=== PATIENT | male | born 1945 | race Caucasian/White ===

== ENCOUNTER 2017-12-29 09:32 | Day surgery (SDC) | payer OTHER, SELFPAY ==
--- NOTE | 2017-12-29 | PATH_ITS ---
[facility] Accession Number: [id number] . 01 Material submitted: . ASCENDING COLON POLYPS, BIOPSY . 02 Diagnosis: Ascending Colon, Polyps, Biopsies: Sessile serrated adenomas. MRV/12/30/2017 . 02 Electronically signed: . Jennifer Lomeli MD, Pathologist NPI- [id number] . 01 Gross description: . Received one formalin-filled container labeled with the patient's name and labeled ascending colon polyp, are two 0.4-0.6 cm portions of tissue, entirely submitted in one cassette. ([id number]) /FRR . 02 Pathologist provided ICD-10: D12.2 . 02 CPT . 583492 Performed at: 01 [facility] [address] [id number] MD Mo Arcos MD Phone: [phone] Performed at: 02 [facility] [address] [place], [place] [id number] MD Dakota Pizarro MD Phone: [phone]
[2017-12-29 09:54] VITALS: BMI 23.3
[2017-12-29 10:08] VITALS: BP 139/74; PULSE 68; RESP 12; TEMP 36.9; O2SAT 96
[2017-12-29] MEDS: SODIUM CHLORIDE 0.9% 1,000 ML 21 ML IV (10:10)
[2017-12-29] MEDS: fentaNYL 250 MCG/5 ML INJ IV (11:26)
[2017-12-29] MEDS: MIDAZOLAM 5 MG/5 ML VIAL IV (11:27)
--- NOTE | 2017-12-29 11:33 | PM.OP.ENDO ---
Operative Date/Time/Diagnoses Date of procedure: 12/29/17 Time of procedure: 11:33 Pre-op diagnosis: See indications Procedure & Clinicians Study performed: Colonoscopy Indications: Personal history of colon polyps and positive fit test Surgeon: Riki Cooper Procedure Notes Procedure in detail: After informed consent was obtained the patient was placed in left lateral decubitus position. The video colonoscope was introduced in the rectum and slowly advanced to the cecum. On slow withdrawal the mucosa was carefully examined. Scope was removed and the patient tolerated procedure well Blood loss none Complications none Sedation Versed 7 mg fentanyl 100 mcg IV titration Total sedation time 20 min Findings 1. 1 cm sessile polyp with indistinct margins at the cecal rim opposite the IC valve. This was injected with 2 cc normal saline to raise and then hot snared. Specimen was retrieved. 2. 2.5 cm semi sessile polyp seen in mid ascending colon. This was injected with saline to raise and then piecemeal snared. Pieces were removed. Area was then injected with 1 cc of spot for tattooing and location in the future. 3. Severe diverticulosis particularly in the sigmoid colon. 4. Otherwise negative colonoscopy to cecum We will be in touch with the patient regarding his pathology but most likely will need follow-up colonoscopy in 6 months to reassess these areas.
[2017-12-29 11:34] VITALS: BP 112/67; PULSE 71; RESP 10; TEMP 36.4; O2SAT 96
[2017-12-29 11:35] VITALS: BP 106/66; BP 131/87; PULSE 87; PULSE 89; RESP 14; RESP 22; O2SAT 97; O2SAT 99
[2017-12-29 11:45] VITALS: BP 120/70; PULSE 72; RESP 14; O2SAT 96
[2017-12-29 11:55] VITALS: BP 114/63; PULSE 74; RESP 13; O2SAT 98
[2017-12-29 12:15] VITALS: BP 117/75; PULSE 88; RESP 12; TEMP 36.3; O2SAT 99
--- NOTE | 2018-08-14 11:48 | PM.HP.1 ---
History of Present Illness Date Patient Seen: 12/29/17 Time Patient Seen: 11:48 Chief complaint: colonoscopy [id number] Narrative: Positive FIT with history of colon polyps Patient History Medical History Blood cholesterol increased compared with prior measurement (Acute) Hemorrhoids (Acute) Surgical History History of splenectomy (Acute) Social History household members: spouse Smoking Status: Former smoker Family & Social History Social History: household members spouse Meds Home Medications Medication Instructions Recorded Confirmed Type ascorbic acid (vitamin C) [Vitamin 1,000 mg PO DAILY 12/29/17 12/29/17 History C] aspirin [Aspir-81] 81 mg PO DAILY 12/29/17 12/29/17 History atorvastatin 20 mg PO BEDTIME 12/29/17 12/29/17 History bupropion HCl 150 mg PO QAM 12/29/17 12/29/17 History dorzolamide-timolol [Cosopt] 1 drp EYE-LEFT BID 12/29/17 12/29/17 History ibuprofen 200 mg PO DAILY 12/29/17 12/29/17 History multivitamin 1 tab PO DAILY 12/29/17 12/29/17 History tafluprost (PF) [Zioptan (PF)] 1 drp EYE-LEFT DAILY 12/29/17 12/29/17 History Allergies Allergy/AdvReac Type Severity Reaction Status Date / Time morphine AdvReac Severe Itching Verified 12/29/17 09:50 Exam Vital Signs (past 8 hours): Oxygen Delivery Method Room Air Narrative Exam Narrative: oropharynx free of lesions chest clear to auscultation percussion Cardiac exam reveals no S3 or murmur Assessment & Plan Assessment & Plan narrative: positive fit test and history of colon polyps need for follow-up colonoscopy. risks, benefits, alternatives have been explained. Further recommendations will follow the results of th
== END 2017-12-29 12:31 | disposition home or self-care (01) ==
PROVIDERS: PCP Internal Medicine; Visit Provider Internal Medicine Gastroenterology
PROC: 0DJD8ZZ Inspection of Lower Intestinal Tract, Via Natural or Artificial Opening Endoscopic (ICD-10-PCS; CPT 45378; principal; 2017-12-29 10:30)
DX: R19.5 Other fecal abnormalities (principal); Z86.010 Personal history of colon polyps; K57.30 Diverticulosis of large intestine without perforation or abscess without bleeding; D12.2 Benign neoplasm of ascending colon
CPT/HCPCS: 45385; 45381; J2250; J3010

== ENCOUNTER 2017-12-30 23:06 | Emergency (ER) | payer OTHER, SELFPAY ==
[2017-12-30 23:18] VITALS: BP 130/70; PULSE 96; RESP 18; TEMP 36.3; O2SAT 98; BMI 23.3
--- NOTE | 2017-12-30 23:44 | DI.CT.S_ITS ---
PROCEDURE: CT ABDOMEN PELVIS W CON INDICATIONS: Colonoscopy yesterday now with rectal bleeding TECHNIQUE: After the administration of intravenous contrast, 5 mm thick sections acquired from the diaphragm to the symphysis. 5 mm coronal and sagittal reformats were acquired. For radiation dose reduction, the following was used: automated exposure control, adjustment of mA and/or kV according to patient size. COMPARISON: None. FINDINGS: Image quality: Excellent. ABDOMEN: Lung bases: No acute consolidation. Presumed ill-defined scarring seen in the left lower lobe with possible early bleb formation however technically nonspecific. There is also a 3 mm nodule in the right middle lobe which is indeterminate in the absence of prior studies Solid organs: 3 mm right hepatic hypodensity is too small to characterize. Gallbladder contracted. Biliary system is non dilated. Pancreas enhances normally. Spleen is absent No adrenal nodules. Bilateral renal cortical scarring, mild. There are presumed bilateral renal cysts although all of these are technically too small to characterize and subcentimeter. Prominent distention of the stomach and duodenum. No definite bowel obstruction. Colonic diverticulosis. The appendix appears normal. The rectum is filled with stool and fluid otherwise unremarkable. No free air or free fluid identified. Nodes and vessels: No retroperitoneal or mesenteric adenopathy by size criteria. Aorta and inferior vena cava are normal in size. Miscellaneous: No ventral hernias. PELVIS: Genitourinary: Bladder wall thickness is normal. Prostate is mildly enlarged Miscellaneous: No inguinal hernias or adenopathy. Bones: No suspicious bony lesions. No vertebral body compression fractures. Presumed lipoma seen within the right adductor muscle compartment. Diffuse discogenic changes throughout the entire visualized spine. There is facet arthropathy. IMPRESSION: No acute abnormality. Normal appearance of the appendix. No free air or free fluid. No evidence of bowel obstruction. Prominent gastric and small bowel contents as well as moderate fluid and gas seen within the colon. Please correlate clinically. If there is suspicion of developing bowel obstruction or ileus, continued surveillance with abdominal radiographs could be performed. Incidental diverticulosis. 3 mm right middle lobe pulmonary nodule which is technically indeterminate in the absence of prior studies. A followup noncontrast chest CT in one year could be performed as clinically warranted. Additional chronic and incidental findings as above. Dictated by: Emmanuel Nicole M.D. on 12/31/2017 at 7:17 Approved by: Emmanuel Nicole M.D. on 12/31/2017 at 7:25
--- NOTE | 2017-12-30 23:52 | PC.NURSE ---
Pt reports that he had a colonoscopy yesterday, tonight having bloody stools. on assessment, rectum has many hemorrhoids. Pt reports he had had them for years. Other than the blood in his stool he is having no other sx. Denies CP SOB dizziness or being lightheaded. Vitals are WNL for him and he denies pain.
--- NOTE | 2017-12-30 23:54 | ED_ITS ---
HPI - GI Bleed General Chief complaint: GI Bleed Stated complaint: GUSH OF RECTAL BLOOD,COLONSCOPY YESTERDAY Time Seen by Provider: 12/30/17 23:10 Source: patient Mode of arrival: ambulatory Limitations: no limitations History of Present Illness HPI Narrative: Patient is a 72-year-old male here for evaluation of 2 episodes of rectal bleeding of bright red blood. Patient states that he had a colonoscopy performed yesterday. Stated that he had 2 biopsies performed. I was able to review the patient's operative note. Patient states that he did have a normal bowel movement earlier in the day but then this evening had a sudden sensation that he needed to go to the bathroom and when he did he had painless bright red blood. This happened 2 times for him. Denies any fevers. Denies any abdominal pain. 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 Patient does have a history of hemorrhoids. Related Data Home Medications Medication Instructions Recorded Confirmed ascorbic acid (vitamin C) [Vitamin 1,000 mg PO DAILY 12/29/17 12/29/17 C] aspirin [Aspir-81] 81 mg PO DAILY 12/29/17 12/29/17 atorvastatin 20 mg PO BEDTIME 12/29/17 12/29/17 bupropion HCl 150 mg PO QAM 12/29/17 12/29/17 dorzolamide-timolol [Cosopt] 1 drp EYE-LEFT BID 12/29/17 12/29/17 ibuprofen 200 mg PO DAILY 12/29/17 12/29/17 multivitamin 1 tab PO DAILY 12/29/17 12/29/17 tafluprost (PF) [Zioptan (PF)] 1 drp EYE-LEFT DAILY 12/29/17 12/29/17 Allergies Allergy/AdvReac Type Severity Reaction Status Date / Time morphine AdvReac Severe Itching Verified 12/29/17 09:50 Review of Systems Constitutional Denies fatigue and Denies fever(s) Cardiovascular Denies chest pain and Denies dyspnea Respiratory Denies dyspnea Gastrointestinal Gastrointestinal: Denies abdominal pain, Reports hematochezia, Denies coffee ground emesis, Reports diarrhea, Reports loose stools, Denies nausea and Denies vomiting Genitourinary Denies hematuria and Denies dysuria Musculoskeletal Denies myalgias and Denies arthralgias Integumentary/Breasts Denies lesions and Denies rash Neurologic Denies confusion Psychiatric Denies confusion Endocrine Denies fatigue Hematologic/Lymphatic Denies easy bleeding and Denies easy bruising [facility] Medical History Hemorrhoids (Acute) Surgical History History of splenectomy (Acute) Social History household members: spouse Smoking Status: Former smoker Exam Initial Vital Signs Initial Vital Signs: Vital Signs Temperature 97.4 F L 12/30/17 23:18 Pulse Rate 96 H 12/30/17 23:18 Respiratory Rate 18 12/30/17 23:18 Blood Pressure 130/70 H 12/30/17 23:18 Pulse Oximetry 98 12/30/17 23:18 Const General: cooperative, healthy appearing, comfortable, well developed, well groomed and No acute distress Orientation: alert, awake and oriented x3 HENMT Head: normal to inspection and normocephalic Resp Effort & Inspection: normal respiratory effort GI Inspection: normal to inspection and non-distended Palpation: soft, No firm and No tender Rectal Exam: normal sphincter tone, heme positive stool, hemorrhoids and No tenderness Skin Lesions: no lesions Rashes: no rashes Neuro General: alert, awake and oriented x3 Extrem General: normal to inspection and capillary refill normal Psych Appearance: grossly normal and well kempt Course Orders Ordered: ED Orders 12/30/17 23:44 CT abdomen pelvis w con Stat 12/30/17 23:48 Basic Metabolic Panel Stat Complete Blood Count AUTO DIFF Stat Discontinued Medications Sodium Chloride (Normal Saline 0.9%) 1,000 mls @ 1,000 mls/hr IV BOLUS ONE Stop: 12/31/17 00:43 Last Infusion: 12/31/17 00:26 Dose: 1,000 mls/hr Infusion: 12/31/17 00:14 Dose: 0 mls/hr Admin: 12/31/17 00:01 Dose: 1,000 mls/hr Vital Signs - 8 hr 12/30/17 23:18 Temperature 97.4 F L Pulse Rate 96 H Respiratory Rate 18 Blood Pressure 130/70 H Pulse Oximetry 98 MDM - GI Bleed Medical Records Attestation: I reviewed the patient's medical records. Lab Data Attestation: I reviewed the patient's lab results. Result diagrams: 12/30/17 23:48 12/30/17 23:48 Lab Results 12/30/17 12/30/17 Range/Units 23:48 23:48 WBC 10.1 (4.5-11.0) X10^3/uL RBC 4.19 L (4.5-5.9) X10^6/uL Hgb 14.3 (13.5-17.5) g/dL Hct 41.2 (41-53) % MCV 98.4 (80-100) fL MCH 34.1 H (26-34) PG MCHC 34.7 (30-36) % RDW 13.2 (11.6-14.8) % Plt Count 275 (150-400) X10^3/uL Neut % (Auto) 54.8 (50-75) % Lymph % (Auto) 28.4 (25-40) % [place] % (Auto) 8.1 (3-14) % Eos % (Auto) 7.7 H (2-4) % Baso % (Auto) 1.0 (0-2) % Neut # (Auto) 5500 (0536-7761) /uL Sodium 141 (137-145) mmol/L Potassium 4.4 (3.4-5.1) mmol/L Chloride 108 H (98-107) mmol/L Carbon Dioxide 25 (22-32) mmol/L BUN 16 (9-20) mg/dL Creatinine 0.80 (0.66-1.25) mg/dL Estimated GFR > 60.0 (>60) mL/min BUN/Creatinine Ratio 20.0 (6-22) Glucose 150 H (80-110) mg/dL Calcium 9.0 (8.4-10.2) mg/dL Imaging Data CT scan - abdomen: Radiologist's impression: No bowel perforation, free air or free fluid. No evidence of acute intraluminal bleeding. History of splenectomy. Prominent stomach, small bowel and colon contents. Moderate diverticulosis of the left colon. No evidence of acute diverticulitis or appendicitis. Mild enlarged prostate. Hepatic and renal cyst. MDM Narrative Medical decision making narrative: Patient has no abdominal pain, no vomiting, no fevers, does have obvious blood on rectal exam. Does have hemorrhoids. Did have 2 polyps removed during his last colonoscopy approximately 24 hr ago. Informed patient that I suspect that his rectal bleeding is either from the polyp removal sites or the hemorrhoids or both. Informed him that he has a low probability given the rest of his physical exam and lack of fevers that there is a bowel perforation. Despite this patient wanted a CT scan because of his prior history of splenic laceration after the last colonoscopy. A CT scan was ordered shows no acute pathology. Patient's labs are unremarkable. Had no further episodes of rectal bleeding here in the ER. Will have the patient call his operative surgeon tomorrow to discuss the findings. Patient was given return precautions. He expressed understanding and agreement with plan. Discharge Plan Departure Patient Disposition: Home, Self-Care Clinical Impression: Bright red rectal bleeding, Hemorrhoids Instructions: DI for Hemorrhoids, DI for Rectal Bleeding Activity Restrictions/Additional Instructions: I recommend that you contact your operative surgeon later today to discuss follow-up. I would not be surprised if you have further rectal bleeding. If this continues you do need to talk with your operative surgeon. Return to the emergency department for any abdominal pain, fevers, vomiting, or any other new or concerning symptoms. Prescriptions: No Action multivitamin Tablet 1 tab PO DAILY RF: 0 ascorbic acid (vitamin C) [Vitamin C] 1,000 mg Tablet 1,000 mg PO DAILY RF: 0 atorvastatin 20 mg Tablet 20 mg PO BEDTIME RF: 0 ibuprofen 200 mg Capsule 200 mg PO DAILY RF: 0 aspirin [Aspir-81] 81 mg Tablet,Delayed Release (Dr/Ec) 81 mg PO DAILY RF: 0 dorzolamide-timolol [Cosopt] 22.3-6.8 mg/mL Drops 1 drp EYE-LEFT BID RF: 0 bupropion HCl 150 mg Tablet Extended Release 24 Hr 150 mg PO QAM RF: 0 tafluprost (PF) [Zioptan (PF)] 0.0015 % Dropperette 1 drp EYE-LEFT DAILY RF: 0
[2017-12-30 23:58] LABS: Add Manual Diff / Slide Review NO; Eosinophils Percent Auto 7.7 % (2-4); Hematocrit 41.2 % (41-53); Hemoglobin 14.3 g/dL (13.5-17.5); Lymphocytes Percent Auto 28.4 % (25-40); Mean Corpuscular HGB Conc 34.7 % (30-36); Mean Corpuscular Hemoglobin 34.1 PG (26-34); Mean Corpuscular Volume 98.4 fL (80-100); Monocytes Percent Auto 8.1 % (3-14); Neutrophils Absolute Auto 5500 /uL (3000-5900); Neutrophils Percent Auto 54.8 % (50-75); Platelet Count 275 X10^3/uL (150-400); Red Blood Cell Count 4.19 X10^6/uL (4.5-5.9); Red Cell Distribution Width 13.2 % (11.6-14.8); White Blood Cell Count 10.1 X10^3/uL (4.5-11.0)
[2017-12-31] MEDS: SODIUM CHLORIDE 0.9% 1,000 ML 1000 ML IV (00:01)
[2017-12-31 00:08] LABS: Blood Urea Nitrogen 16 mg/dL (9-20); Carbon Dioxide 25 mmol/L (22-32); Chloride 108 mmol/L (98-107); Estimated Glomerular Filt Rate > 60.0 mL/min (>60); Glucose 150 mg/dL (80-110); HEMOLYSIS 19 (0-50); Potassium 4.4 mmol/L (3.4-5.1); Sodium 141 mmol/L (137-145)
[2017-12-31 01:33] VITALS: BP 119/73; PULSE 82; RESP 16; O2SAT 96
== END 2017-12-31 01:34 | disposition home or self-care (01) ==
PROVIDERS: Emergency Provider Emergency Medicine; PCP Internal Medicine
DX: K64.9 Unspecified hemorrhoids (principal)
CPT/HCPCS: 36591; 74177; 80048; 85025; 96360; 99283; 99285; Q9967

== ENCOUNTER 2018-09-07 08:55 | Day surgery (SDC) | payer OTHER, SELFPAY ==
--- NOTE | 2018-09-07 | PATH_ITS ---
[facility] Accession Number: [id number] . 01 Material submitted: . PART A: ileum - TERMINAL ILEUM LESION PART B: colon - ASCENDING COLON POLYP PART C: colon - ASCENDING COLON POLYP PART D: colon - TRANSVERSE COLON POLYP PART E: sigmoid colon - SIGMOID POLYP . 01 Clinical history: . A: RULE OUT ADENOMA B: PREVIOUS POLYPECTOMY SITE C: POLYP X4 D: POLYP X2 . 02 Diagnosis: A. Terminal Ileum, Biopsy: Ileal mucosa with benign lymphoid hyperplasia. Negative for active inflammation, granulomata, dysplasia or malignancy. . B. Ascending Colon, Previous Polypectomy Site, Biopsy: Spirochetosis. No evidence of residual neoplasm. . C. Ascending Colon, Polyps: Fragments of sessile serrated adenoma and fragment of tubular adenoma (four polyps removed). Spirochetosis. . D. Transverse Colon, Polyps: Fragments of hyperplastic polyp (two polyps removed). Spirochetosis. . E. Sigmoid Colon, Polyp: Traditional serrated adenoma; please see comment. Spirochetosis. Negative for high-grade dysplasia or malignancy. MRV/09/09/2018 . 02 Comment: Parts B-E) Colonic spirochetosis is an unusual condition in which numerous spirochete bacteria carpet the surface epithelium. It has been associated with abdominal pain, diarrhea, rectal bleeding, and immunosuppression in some cases. That said, it is often reported as an incidental finding with no clear clinical correlates. . Part E) A traditional serrated adenoma is considered an advanced adenoma. As such, assurance of a complete polypectomy and a shortened surveillance interval are recommended. As part of routine clinical quality analyst, Dr. Lomeli has reviewed this part and agrees with the diagnosis of traditional serrated adenoma. . 02 Electronically signed: . Ruslan Giles MD, PhD, Pathologist NPI- [id number] . 01 Gross description: . Part A: TERMINAL ILEUM LESION: Received in formalin are 2 fragment(s) of sagastume, soft tissue measuring 0.2 x 0.2 x 0.2 cm to 0.3 x 0.2 x 0.2 cm which is entirely submitted and submitted entirely in 1 cassette(s) Part B: ASCENDING COLON POLYP: Received in formalin are 2 fragment(s) of sagastume, soft tissue measuring 0.2 x 0.2 x 0.1 cm to 0.3 x 0.2 x 0.2 cm which is entirely submitted and submitted entirely in 1 cassette(s) Part C: ASCENDING COLON POLYP: Received in formalin are multiple fragment(s) of sagastume, soft tissue measuring 0.1 x 0.1 x 0.1 cm to 0.3 x 0.3 x 0.3 cm which is entirely submitted and submitted entirely in 1 cassette(s) Part D: TRANSVERSE COLON POLYP: Received in formalin are 2 fragment(s) of sagastume, soft tissue measuring 0.1 x 0.1 x 0.1 cm to 0.3 x 0.2 x 0.2 cm which is entirely submitted and submitted entirely in 1 cassette(s) Part E: SIGMOID POLYP: Received in formalin are 2 fragment(s) of sagastume, soft tissue measuring 0.4 x 0.4 x 0.3 cm to 1.3 x 0.2 x 0.2 cm which is entirely submitted and submitted entirely in 1 cassette(s) /DMC /[facility] . 02 Microscopic: . B. A charline stain is performed to evaluate for spirochetosis, and highlights innumerable spirochete organisms carpeting the luminal surface. A control stain shows appropriate reactivity. . 02 Pathologist provided ICD-10: D12.2, D12.3, D12.5 . 02 CPT . 499633, 348625, 553131, 098264, 435547, 452417 Performed at: 01 [facility] [address] [place] [address], [place], [place] [id number] MD Mo Arcos MD Phone: [phone] Performed at: 02 [facility] [address] [place], [place] [id number] MD Jennifer Lomeli MD Phone: [phone]
[2018-09-07 09:13] VITALS: BP 134/66; PULSE 75; RESP 16; TEMP 36.1; O2SAT 97; BMI 23.1
--- NOTE | 2018-09-07 09:23 | PM.HP.1 ---
History of Present Illness Date Patient Seen: 09/07/18 Chief complaint: [id number] COLONOSCOPY Narrative: 73-year-old male with a history of colon polyps on colonoscopy 12/29/2017 who is here for surveillance after piecemeal polypectomy. Patient History Family & Social History Social History: household members spouse Tobacco & Substance use: Smoking Status Former smoker alcohol intake frequency a few times a month Substance Use Type does not use Meds Home Medications Medication Instructions Recorded Confirmed Type ascorbic acid (vitamin C) [Vitamin 1,000 mg PO DAILY 12/29/17 12/29/17 History C] aspirin [Aspir-81] 81 mg PO DAILY 12/29/17 12/29/17 History atorvastatin 20 mg PO BEDTIME 12/29/17 12/29/17 History bupropion HCl 150 mg PO QAM 12/29/17 12/29/17 History dorzolamide-timolol [Cosopt] 1 drp EYE-LEFT BID 12/29/17 12/29/17 History ibuprofen 200 mg PO DAILY 12/29/17 12/29/17 History multivitamin 1 tab PO DAILY 12/29/17 12/29/17 History tafluprost (PF) [Zioptan (PF)] 1 drp EYE-LEFT DAILY 12/29/17 12/29/17 History Allergies Allergy/AdvReac Type Severity Reaction Status Date / Time morphine AdvReac Severe Itching Verified 09/07/18 09:37 Exam Narrative Exam Narrative: General: Patient is well developed, not in apparent distress Cardiovascular: Regular rate and rhythm, no murmurs, rubs, or gallops; no evidence of edema; no palpable abdominal aortic aneurysm Gastrointestinal: Normoactive bowel sounds, soft, nontender, nondistended, no rebound tenderness, no hepatosplenomegaly, no evidence of hernia Assessment & Plan Assessment & Plan narrative: 73-year-old male with a history of piecemeal polypectomy on colonoscopy 12/29/2017 who is here for surveillance. Regarding the procedure(s), the risks and potential complications, benefits, and alternatives (including not doing the procedure) were discussed with the patient. The risks include but are not limited to bleeding, splenic injury, infection, perforation which may require surgical intervention, missed lesions, and adverse reactions to sedative medicines. After a question and answer period, the patient agreed to proceed with the procedure(s) and gives informed consent.
[2018-09-07] MEDS: SODIUM CHLORIDE 0.9% 1,000 ML 70 ML IV (09:30)
--- NOTE | 2018-09-07 10:24 | P.OP.ENDO_ITS ---
Operative Date/Time/Diagnoses Date of procedure: 09/07/18 Procedure Notes Procedure in detail: Surgeon: Rob Saunders MD Procedure: Colonoscopy with polypectomy Preoperative diagnosis: Colon polyp surveillance, piecemeal polypectomy performed 12/29/2017 Postoperative diagnosis: 8 colon polyps removed, ascending colon tattoo with no residual polyp pandiverticulosis, grade 2 internal hemorrhoids, external hemorrhoids Medications: Conscious sedation using 4 mg IV of Midazolam and 100 mcg IV of Fentanyl Preanesthesia Assessment An H and P was performed/updated and the Px?s ASA class is 1. The procedure was discussed in detail with the patient. The potential risks and complications including infection, bleeding, missed lesions, perforation, need for surgery in case of perforation, prolonged hospital stay, and were explained. A brief question and answer period was allotted and once all questions were answered, informed consent was obtained. The patient was brought back to the procedure room and placed on standard monitoring. The patient?s vital signs were monitored continuously throughout the entire procedure. Prior to starting, a timeout was performed to confirm the patient?s identity, allergies, medications, and procedure. Procedure in detail The patient was placed in left lateral decubitus position and once adequate sedation was obtained a CARL was performed. The digital rectal examination did not reveal any palpable lesions. The tip of the colonoscope was placed in the anal canal and advanced without difficulty all the way to the cecum which was identified by the appendiceal orifice and the ileocecal valve. The terminal ileum was intubated to a distance of 5 cm from the ileocecal valve. The mucosa appeared slightly nodular and hence random biopsies were taken of this area. There was minimal bleeding. The colonoscope was then brought back to the cecum and careful examination of all pearson of the colon was performed with irrigation of any residual stool. In the ascending colon, there was a prior polypectomy site visualized with note of residual polyp. Completion of polypectomy was performed by means of a hot snare and cold Jumbo forceps. Resection and retrieval was complete with minimal bleeding. In the ascending colon, a prior tattoo site was found with no note of any residual polyp. In the ascending colon, 4 more sessile polyps were removed by means of cold Jumbo forceps. These measured 3-4 mm. Resection retrieval were complete In the transverse colon, 2 polyps were seen measuring 3 mm and 6 mm. These polyps were removed by means of cold Jumbo forceps and cold snare respectively. Resection and retrieval were complete with minimal bleeding In the sigmoid colon there was a 5 mm pedunculated polyp which was removed by means of hot snare. Resection and retrieval were complete with no bleeding. There was note of multiple large diverticula throughout the entire colon concentrated mostly in the ascending colon and left colon. Retroflexion was performed in the rectum which revealed grade 1 internal hemorrh oids The patient tolerated the procedure well and will be brought back to the recovery area to be discharged once criteria are met. The prep was judged to be good/excellent and adequate to identify polyps less than 5 mm. The withdrawal time was at 23 minutes. The total physician intraservice time was 30 minutes. Complications There were no complications and estimated blood loss was minimal. Recommendations: Resume previous diet Continue outPx medications Follow up pathology results Repeat colonoscopy in 3 years An emergency contact number was given to the patient for any complications r elated to the procedure
[2018-09-07] MEDS: MIDAZOLAM 5 MG/5 ML VIAL IV (10:27)
[2018-09-07] MEDS: fentaNYL 250 MCG/5 ML INJ IV (10:28)
[2018-09-07 10:57] VITALS: BP 126/79; PULSE 74; RESP 14; TEMP 36.8; O2SAT 99
[2018-09-07 11:02] VITALS: BP 129/66; PULSE 71; RESP 12; O2SAT 99
[2018-09-07 11:07] VITALS: BP 115/70; PULSE 72; RESP 11; O2SAT 99
--- NOTE | 2018-09-07 11:07 | PM.DS.1 ---
History of Present Illness Chief complaint: [id number] COLONOSCOPY Narrative: 73-year-old male with a history of colon polyps on colonoscopy 12/29/2017 who is here for surveillance after piecemeal polypectomy. Discharge Providers Discharge Date: 09/07/18 Discharge provider: Rob Saunders MD Exam Vital Signs (past 8 hours): - 09/07/18 09:13 09/07/18 10:57 09/07/18 11:02 Temperature 97 F L 98.2 F Pulse Rate 75 74 71 Respiratory Rate 16 14 12 Blood Pressure 134/66 126/79 129/66 Pulse Oximetry 97 99 99 Oxygen Delivery Method Room Air Narrative Exam Narrative: General: Patient is well developed, not in apparent distress Cardiovascular: Regular rate and rhythm, no murmurs, rubs, or gallops; no evidence of edema; no palpable abdominal aortic aneurysm Gastrointestinal: Normoactive bowel sounds, soft, nontender, nondistended, no rebound tenderness, no hepatomegaly, no evidence of hernia; positive surgical scar Discharge Plan Discharge Med Rec/Prescriptions Prescriptions: Continued multivitamin Tablet 1 tab PO DAILY RF: 0 ascorbic acid (vitamin C) [Vitamin C] 1,000 mg Tablet 1,000 mg PO DAILY RF: 0 atorvastatin 20 mg Tablet 20 mg PO BEDTIME RF: 0 ibuprofen 200 mg Capsule 200 mg PO DAILY RF: 0 aspirin [Aspir-81] 81 mg Tablet,Delayed Release (Dr/Ec) 81 mg PO DAILY RF: 0 dorzolamide-timolol [Cosopt] 22.3-6.8 mg/mL Drops 1 drp EYE-LEFT BID RF: 0 bupropion HCl 150 mg Tablet Extended Release 24 Hr 150 mg PO QAM RF: 0 Zioptan (PF) 0.0015 % Dropperette 1 drp EYE-LEFT DAILY RF: 0 Discharge Orders: Discharge (Order); Ordered 09/07/18 Ordered By: Rob Saunders Provider Discharge Instructions Diet: Diet as Tolerated Visit Report/Discharge Packet Stand Alone Forms: Colonoscopy Result: Med Grp Discharge Data Attending Provider: Rob Saunders
[2018-09-07 11:15] VITALS: BP 121/65; PULSE 73; RESP 14; TEMP 36.2; O2SAT 100
[2018-09-07 12:02] VITALS: BP 111/68; PULSE 81; RESP 15; TEMP 36.2; O2SAT 98
== END 2018-09-07 12:07 ==
LOC: ENDO 08:58
PROVIDERS: Visit Provider Internal Medicine Gastroenterology
PROC: 0DJD8ZZ Inspection of Lower Intestinal Tract, Via Natural or Artificial Opening Endoscopic (ICD-10-PCS; CPT 45378; principal; 2018-09-07 10:30)
DX: R19.5 Other fecal abnormalities (principal); Z86.010 Personal history of colon polyps; K57.30 Diverticulosis of large intestine without perforation or abscess without bleeding; K64.1 Second degree hemorrhoids; K64.4 Residual hemorrhoidal skin tags; E78.5 Hyperlipidemia, unspecified; D12.2 Benign neoplasm of ascending colon; D12.3 Benign neoplasm of transverse colon; D12.5 Benign neoplasm of sigmoid colon; A69.8 Other specified spirochetal infections
CPT/HCPCS: 45385; 45380; J2250; J3010